=== PATIENT | male | born 1950 | race Caucasian/White ===

== ENCOUNTER 2019-03-24 21:53 | Inpatient (IN) | payer MEDICARE ==
[~2019-03-24] VITALS: Ht 180.3 cm; Wt 111.2 kg
--- NOTE | 2019-03-24 22:10 | NUR ---
PATIENT WALKED INTO ER WITH RELATIVE C/O ABDOMINAL PAIN WITHOUT N/V AND DIARRHEA. PATIENT STATES PAIN STARTED 4HRS SAAS ARCHITECT STATING "IT MIGHT HAVE BEEN THE CORN I ATE THAT MADE MY STOMACH ACHE."
[2019-03-24] MEDS ORDERED: IV NORMAL SALINE 1000 ML BAG IV ONE (22:45)
[2019-03-24 23:00] LABS: *BILIRUBIN,URIN NEGATIVE (NEGATIVE); *BLOOD, URINE NEGATIVE (NEGATIVE); *CLARITY,URINE SLIGHTLY CLOUDY (CLEAR); *COLOR,URINE YELLOW (YELLOW); *KETONES,URINE TRACE (NEGATIVE); *UROBILINOGEN,URINE 0.2 E.U./dl (NORMAL); BASOPHILS # (AUTO) 0.1 K/uL (0.0-8.0); BASOPHILS % (AUTO) 1.4 % (0.0-2.0); EOSINOPHILS % (AUTO) 0.4 % (0.0-7.0); HEMATOCRIT 55.6 % (36.7-47.1); HEMOGLOBIN 19.2 g/dL (12.5-16.3); LEUKOCYTE ESTERASE ,URINE NEGATIVE (NEGATIVE); LYMPHOCYTES % (AUTO) 9.9 % (20.5-51.5); MEAN CORPUSCULAR HGB CONC 35 g/dL (32.5-36.3); MEAN CORPUSCULAR VOLUME 89.7 fL (73.0-96.2); MONOCYTES # (AUTO) 0.5 K/uL (2.0-10.0); NEUTROPHILS # (AUTO) 8.6 K/uL (1.8-8.9); NEUTROPHILS % (AUTO) 83.3 % (38.5-71.5); NITRITE, URINE NEGATIVE (NEGATIVE); PLATELET COUNT (AUTO) 217 K/uL (152-348); UGLUCOSE NEGATIVE (NEGATIVE); WHITE BLOOD COUNT (AUTO) 10.3 K/uL (3.6-10.2)
[2019-03-24 23:06] LABS: BACTERIA,URINE NONE SEEN /HPF (NONE SEEN); CREATININE 1.2 mg/dL (0.6-1.3); POTASSIUM 4.9 mmol/L (3.5-5.1); RBC,URINE 0-3 /HPF (0-3); SQUAMOUS EPITHELIAL CELL,UR NONE SEEN /HPF (NONE SEEN); WBC,URINE 0-3 /HPF (0-3)
[2019-03-24 23:07] LABS: MUCUS,URINE FEW /LPF (0-FEW)
[2019-03-24 23:11] LABS: BILIRUBIN,DIRECT 0.1 mg/dL (0.0-0.2); BILIRUBIN,TOTAL 0.8 mg/dL (0.2-1.0); TOTAL PROTEIN, SERUM 7.9 g/dL (6.4-8.2)
[2019-03-25] MEDS ORDERED: ONDANSETRON 4 MG/2 ML VIAL ONE (01:00)
[2019-03-25] MEDS ORDERED: MORPHINE SULFATE 4 MG/1 ML DISP.SYRIN IV ONE (01:00)
[2019-03-25] MEDS ORDERED: MORPHINE SULFATE 4 MG/1 ML DISP.SYRIN ONE (01:00)
[2019-03-25] MEDS ORDERED: AMPH10CA3 PO (01:00)
[2019-03-25] MEDS ORDERED: ONDANSETRON 4 MG/2 ML VIAL IV ONE (01:00)
--- NOTE | 2019-03-25 01:10 | NUR ---
DR PEREZ INTO EVAL PATIENT
--- NOTE | 2019-03-25 01:15 | NUR ---
Received report from SARAY Contreras from ER
--- NOTE | 2019-03-25 01:45 | NUR ---
Pt. admitted to [facility], under care of Dr. ARTEAGA Belongs List completed
[2019-03-25 01:55] VITALS: BP 146/84
[2019-03-25] MEDS ORDERED: ONDANSETRON 4 MG/2 ML VIAL IV PRN ×2 (02:15→12:15)
[2019-03-25] MEDS ORDERED: Z GUARD REMEDY PASTE 57 GM TUBE TOP PRN (02:15)
[2019-03-25] MEDS ORDERED: HYDROCODONE/APAP 5-325MG TABLET PO PRN (02:15)
[2019-03-25] MEDS ORDERED: ZOLPIDEM 5 MG TABLET PO PRN (02:15)
[2019-03-25] MEDS ORDERED: MAGNESIUM HYDROXIDE 30 ML LIQUID UDC PO PRN (02:15)
[2019-03-25] MEDS ORDERED: ACETAMINOPHEN 325 MG TABLET PO PRN (02:15)
--- NOTE | 2019-03-25 02:45 | NUR ---
Admitting Notes: patient received from ER, awake and alert. Patient is oriented x4 and has no complaints of pain at this time. All assessments completed. Patient oriented to room and facility. All safety and fall precaution measures are in place. Personal items and call light are within reach at this time. Will continue to monitor.
[2019-03-25] MEDS: IV D5 1/2 NS 1000 ML 1,000 ML IV PRN ×2 (02:50→14:38)
[2019-03-25] MEDS ORDERED: PNEUMOCOCCAL 23-VAL P-SAC VAC 0.5 ML VIAL IM ONE ×2 (03:45→11:00)
[2019-03-25 04:45] VITALS: BP 143/77
--- NOTE | 2019-03-25 06:00 | NUR ---
Patient slept comfortably since admitting. Complaint of pain was addressed with prescribed analgesic and tolerated well with no adverse side effects verbalized or observed. Patient remains NPO. Safety and fall precaution measures remain in place. Call light and personal items remain within reach at all times.
[2019-03-25] MEDS: MORPHINE SULFATE 2 MG/1 ML DISP.SYRIN IV PRN ×2 (06:23→10:23)
--- NOTE | 2019-03-25 07:10 | NUR ---
Patient in Bed, awake and verbally responsive. No signs of Respiratory distress noted. No signs of Pain or Discomfort at this time. No complain of nausea/Vomiting at this time. Will continue to monitor.
--- NOTE | 2019-03-25 08:00 | NUR ---
Patient complained of nausea, Zofran PRN given as ordered.
[2019-03-25] MEDS: PANTOPRAZOLE SODIUM 40 MG VIAL IV SCH (08:06)
--- NOTE | 2019-03-25 11:00 | NUR ---
offered Pneumonia Vaccine but Patient verbalized that he wants to received it Later today because he still nauseas. Will Hold it for Now, and will offer it again later today.
[2019-03-25 11:04] VITALS: BP 159/81
[2019-03-25] MEDS ORDERED: IV NORMAL SALINE 500 ML IV ONE (12:00)
[2019-03-25] MEDS ORDERED: BARIUM SULFATE 340 GM ONE (13:09)
[2019-03-25] MEDS ORDERED: DIATR MEGLU/DIATRIZOATE SODIUM 30 ML SOLUTION ONE ×2 (13:09)
[2019-03-25] MEDS ORDERED: HOME MED MISCELLANEOUS XX SCH (13:15)
[2019-03-25 15:23] VITALS: BP 158/88
--- NOTE | 2019-03-25 17:20 | NUR ---
Patient had a XL Bowel Movement, verbalized relief of Abdominal pain. No complain of Nausea at this time.
--- NOTE | 2019-03-25 17:47 | NUR ---
Offer Pneumonia Vaccine for the 2nd time. Patient refused to take it, he said he will just get it from his Primary physician.
--- NOTE | 2019-03-25 18:11 | NUR ---
Patient in Bed, awake and verbally responsive. No signs of respiratory distress noted. No SOB. No complain of Abdominal pain and Nausea or Vomiting at this time. Abdomen is soft, patient had a XL Bowel movement at 1700. IVF running at 75 cc/hr at Right AC. All needs attended and met. Will Endorse to Oncoming Nurse.
[2019-03-25 19:51] VITALS: BP 134/72
--- NOTE | 2019-03-25 20:00 | NUR ---
Patient received awake and resting comfortably in bed. Patient is alert and oriented x4 with no complaints of pain or acute distress at this time. IV site is patent and intact with D5 1/2 NS running at 75mL/hr. All safety and fall precaution measures are in place. Call light and personal items are within reach at all times. Will continue to monitor.
[2019-03-26] MEDS: IV D5 1/2 NS 1000 ML 1,000 ML IV PRN (03:43)
[2019-03-26 04:35] VITALS: BP 111/71
[2019-03-26 05:56] LABS: BASOPHILS % (AUTO) 0.3 % (0.0-2.0); EOSINOPHILS # (AUTO) 0.1 K/uL (0.0-0.7); EOSINOPHILS % (AUTO) 1.3 % (0.0-7.0); HEMATOCRIT 48.7 % (36.7-47.1); HEMOGLOBIN 16.7 g/dL (12.5-16.3); LYMPHOCYTES # (AUTO) 1.2 K/uL (20.0-40.0); LYMPHOCYTES % (AUTO) 17.5 % (20.5-51.5); MEAN CORPUSCULAR HEMOGLOBIN 30.9 uug (23.8-33.4); MEAN CORPUSCULAR HGB CONC 34 g/dL (32.5-36.3); MEAN CORPUSCULAR VOLUME 90.1 fL (73.0-96.2); MONOCYTES # (AUTO) 0.7 K/uL (2.0-10.0); MONOCYTES % (AUTO) 9.9 % (0.0-11.0); NEUTROPHILS # (AUTO) 4.8 K/uL (1.8-8.9); PLATELET COUNT (AUTO) 186 K/uL (152-348); RED BLOOD CELL COUNT(AUTO) 5.41 MIL/uL (4.06-5.63); WHITE BLOOD COUNT (AUTO) 6.8 K/uL (3.6-10.2)
[2019-03-26 06:06] LABS: CREATININE 1.1 mg/dL (0.6-1.3); MAGNESIUM 2.2 mg/dL (1.8-2.4); PHOSPHOROUS 2.9 mg/dL (2.5-4.9)
[2019-03-26 06:15] LABS: THYROID STIMULATING HORMONE 1.58 mIU/mL (0.358-3.740)
--- NOTE | 2019-03-26 07:06 | NUR ---
Patient slept throughout night with no complaints of pain or acute distress. All nursing needs met promptly. Safety and fall precautions remain in place. IV site patent and intact, running IV D5 1/2 NS @ 75mL/hr. VS are wnl and patient is stable. Call light remains within reach at all times.
[2019-03-26] MEDS: PANTOPRAZOLE SODIUM 40 MG VIAL IV SCH (09:09)
--- NOTE | 2019-03-26 13:00 | NUR ---
PT. ASYMPTOMATIC DENIES PAIN DENIES NAUSEA. ABD LESS DISTENDED. AWAITING DR EVALUATION. IV D/C'D
--- NOTE | 2019-03-26 14:00 | NUR ---
DR FISCHER IN TO EXAMINE PT AND GIVE HOME INSTRUCTIONS. 1415 HOME INSTRUCTIONS REVIEWED WITH PT. INSTRUCTED TO TAKE MIRALAX DAILY FOR BOWEL REGULARITY. RETURN TO HOSPITAL IF SYMPTOMS RECUR, FEVER, PAIN, NAUSEA. DISCHARGED TO GIRLFRIEND. Addendum: 03/26/19 at 1515 by ANNMARIE TENORIO RN PATTIE Stinson/Suzie
== END 2019-03-26 14:20 | disposition home or self-care (01) | DRG 390 ==
LOC: ER 21:56 → MEDSURG3 03-25 01:25
PROVIDERS: ADMIT Student in an Organized Health Care Education/Training Program; ATTEND Nurse Practitioner Acute Care
DX: K56.51 Intestinal adhesions [bands], with partial obstruction (principal); E86.0 Dehydration; F90.9 Attention-deficit hyperactivity disorder, unspecified type; I45.10 Unspecified right bundle-branch block; Z87.891 Personal history of nicotine dependence
CPT/HCPCS: 36415; 70030-TC; 71045; 74018; 74250; 83690; 83735; 84100; 84443; 85025; 85730; 90732; 93005; A4663; C9113; G0378; J2270; J2405; J3490; J7030; J7040; Q9963; Q9967